=== PATIENT | male | born 1965 | race Caucasian/White ===

== ENCOUNTER 2023-11-22 10:12 | Outpatient (AMB) | payer OTHER, SELFPAY ==
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
[2023-11-22 10:26] VITALS: BP 145/78; PULSE 88; O2SAT 98; BMI 29.8
== END 2023-11-22 11:17 | disposition home or self-care (01) ==
PROVIDERS: PCP Internal Medicine; Visit Provider Nurse Practitioner Family
DX: M50.30 Other cervical disc degeneration, unspecified cervical region (principal); M54.12 Radiculopathy, cervical region; M47.812 Spondylosis without myelopathy or radiculopathy, cervical region; M62.838 Other muscle spasm
CPT/HCPCS: 99204; G2211

== ENCOUNTER → 2023-11-22 10:12 | Outpatient (BNVA) | payer OTHER, MEDICARE, SELFPAY | PROVIDERS: PCP Internal Medicine; Visit Provider Nurse Practitioner Family | DX: M50.30 Other cervical disc degeneration, unspecified cervical region (principal); M47.22 Other spondylosis with radiculopathy, cervical region; M62.838 Other muscle spasm | CPT/HCPCS: 99202 ==

== ENCOUNTER 2023-12-06 06:09 | Outpatient (REF) | payer OTHER, SELFPAY | END 2023-12-06 06:10 | disposition home or self-care (01) | LOC: CF 06:09 | PROVIDERS: Visit Provider Internal Medicine | DX: M47.812 Spondylosis without myelopathy or radiculopathy, cervical region (principal) | CPT/HCPCS: 64490; 64491; J2795; Q9967 ==

== ENCOUNTER 2023-12-06 09:37 | Outpatient (AMB) | payer OTHER, SELFPAY ==
--- NOTE | 2023-12-06 09:54 | MHC.OFFVIS ---
Vital Signs 12/06/23 10:01 12/06/23 10:32 BP 140/90 H 134/93 H Blood Pressure Location Lt brachial Lt brachial Position Sitting Sitting Pulse 75 80 Pulse Source Pulse Oximeter Pulse Oximeter Pulse Oximetry (%) 96 98 Oxygen Delivery Method Room Air Room Air Intake Visit Reasons: Left Dx C3-C4-C5 MBB Allergies No Known Allergies Allergy (Verified 11/22/23 10:25) HPI HPI Left Dx C3-C4-C5 MBB: Details: Patient presents for scheduled procedure. Denies any recent cough, cold, infection, fever or other significant changes in medical history since last office visit. [facility] Medical History (Updated 11/22/23 @ 11:48 by MAKAYLA Lynch) Pancreatitis Hepatitis C Fracture Dyslexia COPD (chronic obstructive pulmonary disease) Cervical pain (neck) BPH (benign prostatic hyperplasia) Anxiety Alcohol abuse Abdominal pain Otorrhagia of right ear Cervical radiculopathy Hearing loss in right ear Social History (Updated 11/23/23 @ 07:25 by MAKAYLA Lynch) Household Members: None Alcohol intake: former Year quit: 2018 Physical Exam Vital Signs: Last Vital Signs Pulse 80 12/06/23 10:32 BP 134/93 H 12/06/23 10:32 Pulse Ox 98 12/06/23 10:32 Oxygen Delivery Method Room Air 12/06/23 10:32 Office Procedures Cervical/Thoracic Facet Inj Details: Diagnostic Cervical Medial Branch Block, right C4, C5, C6 medial branches After obtaining written consent, pre-procedure blood pressure and pulse were recorded and are in the nursing record for review. The patient was placed in a lateral position. The respective cervical area was prepped with chloraprep and draped in sterile fashion. The skin over the target medial branch nerves was anesthetized with 0.5% lidocaine. A 25 gauge 1.5 inch needle was inserted into the target medial branch nerve under fluoroscopic guidance. No paresthesias were elicited with needle placement and aspiration was negative for blood and CSF. Next, 0.2cc of omnipaque 180 was injected to verify positioning. Next 0.5 ml 0.5% ropivicaine was injected (0.5 cc total per level). The identical procedure was performed at the remaining levels. The skin was cleansed and a sterile bandage was applied. Following the procedure the patient's vital signs were stable. The patient tolerated the procedure well and no complications were encountered. Following the procedure the patient's vital signs were stable. The patient was discharged home in good condition with post-procedural instructions. Time Out: Immediately prior to the procedure, the following was verbally confirmed that there is a signed consent form and that the correct patient, planned procedure, site and side are consistent with documentation and that necessary equipment and/or blood products are available prior to the start of the case. Complications: none EBL: <5 cc 25165 - with Fluoroscopy 10097 - second level, with Fluoroscopy Procedure code (CPT) selection complete Assessment & Plan Assessment & Plan (1) Cervical spondylosis: Code(s): M47.812 - Spondylosis without myelopathy or radiculopathy, cervical region Category: Medical Plan Patient is status post right diagnostic C4, C5, C6 medial branch blocks. Patient tolerated procedure well and was discharged home in stable condition with discharge instructions. All questions were answered. We will follow-up via telephone or in clinic to assess response to therapy. A follow-up appointment was made during today's visit. Orders: Orders FL guidance in treatment room Today M47.812 - Spondylosis without myelopathy or radiculopathy, cervical region Coding Level of Care Code Procedure Only Diagnoses Cervical spondylosis M47.812 CPT Codes Facet Injection Cervical/Thoracic - CPT: 86088 - with Fluoroscopy ([id number]) Facet Injection Cervical/Thoracic - CPT: 93511 - second level, with Fluoroscopy ([id number])
[2023-12-06 10:01] VITALS: BP 140/90; PULSE 75; O2SAT 96
[2023-12-06 10:32] VITALS: BP 134/93; PULSE 80; O2SAT 98
== END 2023-12-06 10:33 | disposition home or self-care (01) ==
LOC: HO.PMCPRC 09:37
PROVIDERS: PCP Internal Medicine; Visit Provider Internal Medicine
DX: M47.812 Spondylosis without myelopathy or radiculopathy, cervical region (principal)
CPT/HCPCS: 64490; 64491

== ENCOUNTER 2023-12-14 09:54 | Outpatient (AMB) | payer OTHER, SELFPAY ==
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
[2023-12-14 10:09] VITALS: BP 132/78; PULSE 84; O2SAT 98; BMI 29.2
== END 2023-12-14 10:16 | disposition home or self-care (01) ==
PROVIDERS: PCP Internal Medicine; Visit Provider Nurse Practitioner Family
DX: M50.30 Other cervical disc degeneration, unspecified cervical region (principal); M54.2 Cervicalgia; M47.812 Spondylosis without myelopathy or radiculopathy, cervical region
CPT/HCPCS: 99213; G2211

== ENCOUNTER → 2023-12-14 09:54 | Outpatient (BNVA) | payer OTHER, SELFPAY | PROVIDERS: PCP Internal Medicine; Visit Provider Nurse Practitioner Family | DX: M50.30 Other cervical disc degeneration, unspecified cervical region (principal); M47.812 Spondylosis without myelopathy or radiculopathy, cervical region | CPT/HCPCS: 99212 ==

== ENCOUNTER 2024-01-03 06:13 | Outpatient (REF) | payer OTHER, SELFPAY | END 2024-01-03 06:14 | disposition home or self-care (01) | LOC: CF 06:13 | PROVIDERS: Visit Provider Internal Medicine | DX: M47.812 Spondylosis without myelopathy or radiculopathy, cervical region (principal) | CPT/HCPCS: 64490; 64491; J2795; Q9967 ==

== ENCOUNTER 2024-01-03 09:45 | Outpatient (AMB) | payer OTHER, SELFPAY ==
--- NOTE | 2024-01-03 09:59 | MHC.OFFVIS ---
Vital Signs 01/03/24 10:00 01/03/24 10:49 BP 137/83 155/90 H Blood Pressure Location Lt brachial Lt brachial Position Sitting Sitting Pulse 83 80 Pulse Source Pulse Oximeter Pulse Oximeter Pulse Oximetry (%) 94 96 Oxygen Delivery Method Room Air Room Air Intake Visit Reasons: repeat Left Dx C4-C5-C6 MBB Allergies No Known Allergies Allergy (Verified 12/14/23 10:10) HPI HPI repeat Left Dx C4-C5-C6 MBB: Details: Patient presents for scheduled procedure. Denies any recent cough, cold, infection, fever or other significant changes in medical history since last office visit. [facility] Medical History Pancreatitis Hepatitis C Fracture Dyslexia COPD (chronic obstructive pulmonary disease) Cervical pain (neck) BPH (benign prostatic hyperplasia) Anxiety Alcohol abuse Abdominal pain Otorrhagia of right ear Cervical radiculopathy Hearing loss in right ear Social History Household Members: None Alcohol intake: former Year quit: 2018 Physical Exam Vital Signs: Last Vital Signs Pulse 80 01/03/24 10:49 BP 155/90 H 01/03/24 10:49 Pulse Ox 96 01/03/24 10:49 Oxygen Delivery Method Room Air 01/03/24 10:49 Office Procedures Cervical/Thoracic Facet Inj Details: Diagnostic Cervical Medial Branch Block, LEFT C4, C5, C6 medial branches After obtaining written consent, pre-procedure blood pressure and pulse were recorded and are in the nursing record for review. The patient was placed in a lateral position. The respective cervical area was prepped with chloraprep and draped in sterile fashion. The skin over the target medial branch nerves was anesthetized with 0.5% lidocaine. A 25 gauge 1.5 inch needle was inserted into the target medial branch nerve under fluoroscopic guidance. No paresthesias were elicited with needle placement and aspiration was negative for blood and CSF. Next, 0.2cc of omnipaque 180 was injected to verify positioning. Next 0.5 ml 0.5% ropivicaine was injected (0.5 cc total per level). The identical procedure was performed at the remaining levels. The skin was cleansed and a sterile bandage was applied. Following the procedure the patient's vital signs were stable. The patient tolerated the procedure well and no complications were encountered. Following the procedure the patient's vital signs were stable. The patient was discharged home in good condition with post-procedural instructions. Time Out: Immediately prior to the procedure, the following was verbally confirmed that there is a signed consent form and that the correct patient, planned procedure, site and side are consistent with documentation and that necessary equipment and/or blood products are available prior to the start of the case. Complications: none EBL: <5 cc 49678 - with Fluoroscopy 31586 - second level, with Fluoroscopy Procedure code (CPT) selection complete Assessment & Plan Assessment & Plan (1) Cervical spondylosis: Code(s): M47.812 - Spondylosis without myelopathy or radiculopathy, cervical region Category: Medical Plan Patient is status post left C4, C5, C6 MBBs. Patient tolerated procedure well and was discharged home in stable condition with discharge instructions. All questions were answered. We will follow-up via telephone or in clinic to assess response to therapy. A follow-up appointment was made during today's visit. Orders: Orders FL guidance in treatment room Today M47.812 - Spondylosis without myelopathy or radiculopathy, cervical region Coding Level of Care Code Procedure Only Diagnoses Cervical spondylosis M47.812 CPT Codes Facet Injection Cervical/Thoracic - CPT: 51273 - with Fluoroscopy ([id number]) Facet Injection Cervical/Thoracic - CPT: 65255 - second level, with Fluoroscopy ([id number])
[2024-01-03 10:00] VITALS: BP 137/83; PULSE 83; O2SAT 94
[2024-01-03 10:49] VITALS: BP 155/90; PULSE 80; O2SAT 96
== END 2024-01-03 10:58 | disposition home or self-care (01) ==
LOC: HO.PMCPRC 09:45
PROVIDERS: PCP Internal Medicine; Visit Provider Internal Medicine
DX: M47.812 Spondylosis without myelopathy or radiculopathy, cervical region (principal)
CPT/HCPCS: 64490; 64491

== ENCOUNTER 2024-01-17 09:32 | Outpatient (AMB) | payer OTHER, SELFPAY ==
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
[2024-01-17 09:39] VITALS: BP 134/80; PULSE 77; O2SAT 97; BMI 29.5
== END 2024-01-17 10:07 | disposition home or self-care (01) ==
PROVIDERS: PCP Internal Medicine; Visit Provider Nurse Practitioner Family
DX: M50.30 Other cervical disc degeneration, unspecified cervical region (principal); M47.812 Spondylosis without myelopathy or radiculopathy, cervical region
CPT/HCPCS: 99213; G2211

== ENCOUNTER → 2024-01-17 09:33 | Outpatient (BNVA) | payer OTHER, SELFPAY | PROVIDERS: PCP Internal Medicine; Visit Provider Nurse Practitioner Family | DX: M50.30 Other cervical disc degeneration, unspecified cervical region (principal); M47.812 Spondylosis without myelopathy or radiculopathy, cervical region | CPT/HCPCS: 99212 ==

== ENCOUNTER 2024-02-13 11:03 | Day surgery (SDC) | payer OTHER, SELFPAY ==
--- NOTE | 2024-02-12 09:29 | HO.ANESPROP2 ---
HPI - Anesthesia Eval Consult details Narrative: 59yo M for Left C4- C5- C6 Medial Branch Radiofrequency AB PMFSH Active Problems Active Problems: All Active Problems Muscle spasms of neck (Acute) Cervical spondylosis (Acute) Degenerative disc disease, cervical (Acute) Cervical radiculopathy (Acute) Cervical pain (neck) (Acute) Past Medical History Medical History Pancreatitis Hepatitis C Fracture Dyslexia COPD (chronic obstructive pulmonary disease) Cervical pain (neck) BPH (benign prostatic hyperplasia) Anxiety Alcohol abuse Abdominal pain Otorrhagia of right ear Cervical radiculopathy Hearing loss in right ear Social History Social History Household Members: None Alcohol intake: former Year quit: 2018 Meds Allergies Allergy/AdvReac Type Severity Reaction Status Date / Time No Known Allergies Allergy Verified 01/17/24 09:40 Home Medications ?Medication ?Instructions ?Recorded ?Confirmed ?Last Taken ?Type albuterol sulfate 2.5 mg/3 mL 2.5 mg inhalation Q6H 11/22/23 Unknown History (0.083 %) solution for nebulization albuterol sulfate 90 mcg/actuation 2 inh inhalation Q4-6H PRN 11/22/23 Unknown History breath activated powder inhaler,sensor diazepam 5 mg tablet 5 mg PO BEDTIME PRN 11/22/23 Unknown History ondansetron HCl 4 mg tablet 4 mg PO Q8H 11/22/23 Unknown History tamsulosin 0.4 mg capsule (Flomax) 0.4 mg PO DAILY 11/22/23 Unknown History albuterol sulfate 90 mcg/actuation 2 puff inhalation Q6H PRN wheezing 12/14/23 Unknown History aerosol inhaler (Ventolin HFA) Exam Pertinent Lab Results Pertinent Lab Results: CBC and CMP 07/2023 from outside facility WNL Assessment and Plan Assessment Anesthesia Assessment: Chart Reviewed
[2024-02-13 13:13] VITALS: BMI 28.7
[2024-02-13 13:14] VITALS: BP 144/98; PULSE 88; RESP 18; TEMP 37.1; O2SAT 96
--- NOTE | 2024-02-13 14:57 | MHC.SHP ---
Pre-Procedural Eval Section A - 24 Hr Update-Section A only Date of Service: 02/13/24 The patient is an INPATIENT: No Changes since office visit: Yes Patient answered all questions The patient has been examined within 24 hours of the surgical procedure. The History & Physical has been completed within 30 days and I have reviewed it.: No Section B - Complete if H&P > 30 days Chief Complaint: Cervicalgia Relevant Family History (Specify if Yes): No Relevant Social History: None Present Medications: see Short Stay Collaborative assessment Medical History: No relevant PMH History of Previous Operations: No relevant previous surgery Allergies: Allergies Allergy/AdvReac Type Severity Reaction Status Date / Time No Known Allergies Allergy Verified 01/17/24 09:40 Review of Systems Sugical H&P ROS: Negative: Constitution, Cardiovascular and Respiratory Exam Surgical H&P Exam: Normal: HEENT, Normal: Heart and Normal: Lungs Plan Diagnosis/Plan: Unchanged I have reviewed the history and physical and performed a pertinent physical examination on my patient. No changes have occurred unless specified. Time Spent With Patient Time: Total time managing care of this patient today ____ minutes.
--- NOTE | 2024-02-13 14:59 | PM.OP ---
Brief Operative Note Date of Service: 02/13/24 Pre-op diagnosis: Cervical spondylosis Post-op diagnosis: same Procedure: Radiofrequency ablation cervical medial branches, left, C3, C4, C5 Implants: None Surgeon: Chaitanya Zayas MD Anesthesia: local Was an Interventional Sale Consultant used for this Procedure?: No Estimated blood loss (mL): 2 Pathology: none sent Condition: stable Disposition: PACU
--- NOTE | 2024-02-13 14:59 | W.PM.OPN ---
Operative Note Operative Note Date of Service: 02/13/24 Narrative: Preprocedure diagnosis: Cervical spondylosis Postprocedure diagnosis: Same PROCEDURE: Radiofrequency lesioning cervical medial branch nerves, LEFT C3, C4 and C5 After obtaining written consent, pre-procedure blood pressure and heart rate were stable and recorded in the nursing record. The patient was placed in the prone position. The?cervical?area was prepped with chloraprep and draped in sterile fashion. The skin over the target for each medial branch nerve was anesthetized with 0.75% lidocaine. An 18 gauge radiofrequency cannula was advanced to each target site under fluoroscopic guidance. No paresthesias were elicited with needle placement and aspiration was negative for heme and CSF. Impedences were verified under 600 ohms. Motor testing (2 Hz) confirmed needle placement at each site within the appropriate voltage thresholds without any associated motor activation in the upper extremity. Each site was injected with 1 ml 2% preservative-free lidocaine. Radiofrequency lesioning was performed for 90 seconds at 80 deg Celcius. Each site was then injected with 0.5 mL of ropivacaine 0.5%. The needle was removed, skin cleansed and a sterile bandage was applied. The patient tolerated the procedure well and no complications were encountered. Following the procedure the patient's vital signs were stable. The patient was discharged home in good condition with post-procedural instructions. Time Out: Immediately prior to the procedure, the following was verbally confirmed that there is a signed consent form and that the correct patient, planned procedure, site and side are consistent with documentation and that necessary equipment and/or blood products are available prior to the start of the case. Complications: none EBL: <5 cc
[2024-02-13 15:57] VITALS: BP 144/98; PULSE 76; RESP 18; TEMP 37.1; O2SAT 97
== END 2024-02-13 16:19 | disposition home or self-care (01) ==
PROVIDERS: PCP Internal Medicine; Visit Provider Internal Medicine
PROC: (CPT 64633; principal; 2024-02-13 14:00)
DX: M47.812 Spondylosis without myelopathy or radiculopathy, cervical region (principal); G89.29 Other chronic pain; M50.11 Cervical disc disorder with radiculopathy, high cervical region; M50.121 Cervical disc disorder at C4-C5 level with radiculopathy; F43.10 Post-traumatic stress disorder, unspecified; F41.8 Other specified anxiety disorders; Z87.81 Personal history of (healed) traumatic fracture; J44.9 Chronic obstructive pulmonary disease, unspecified; H92.21 Otorrhagia, right ear; Z98.890 Other specified postprocedural states; F10.11 Alcohol abuse, in remission
CPT/HCPCS: 64633; 64634 ×2; J2003; J2795

== ENCOUNTER → 2024-02-13 11:03 | Outpatient (BNV) | payer OTHER, SELFPAY | PROVIDERS: PCP Internal Medicine; Visit Provider Internal Medicine | DX: M47.814 Spondylosis without myelopathy or radiculopathy, thoracic region (principal) | CPT/HCPCS: 64633; 64634 ==